=== PATIENT | male | born 1995 | race American Indian/Alaskan Native ===

== ENCOUNTER 2016-08-01 01:13 | Emergency (ER) | payer SELFPAY ==
[2016-08-01] MEDS ORDERED: NACL 0.9% 500 ML IR ONE (02:33)
[2016-08-01] MEDS ORDERED: NACL 0.9% IR ONE (02:35)
--- NOTE | 2016-08-01 02:58 | XRay Report ---
FINAL REPORT PROCEDURE: XR HAND 2V RT TECHNIQUE: RIGHT hand radiographs, AP and lateral views. CPT 66727-XU HISTORY: Right hand laceration with glass COMPARISON: No prior studies are available for comparison. FINDINGS: Fracture (s) and/or Dislocation(s): None . Alignment: Normal . Joint space(s): Normal . Soft tissues: Normal . Bone mineralization: Normal . Foreign bodies: None . IMPRESSION: Normal Examination .
[2016-08-01] MEDS ORDERED: NORCO 5/325 PO ONE (03:37)
[2016-08-01] MEDS ORDERED: BOOSTRIX IM ONE (03:38)
[2016-08-01] MEDS ORDERED: ZOFRAN ODT PO ONE (03:38)
[2016-08-01] MEDS ORDERED: TRIPLE ANTIBIOTIC TP ONE (03:38)
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
[2016-08-01] MEDS ORDERED: MOTRIN PO ONE (05:54)
[2016-08-01] MEDS ORDERED: CLEOCIN PO ONE (05:54)
[2016-08-01 06:27] VITALS: BP 129/89
== END 2016-08-01 06:27 | disposition home or self-care (01) ==
LOC: ED 01:13
DX: S61.411A Laceration without foreign body of right hand, initial encounter (principal); F17.210 Nicotine dependence, cigarettes, uncomplicated; F12.10 Cannabis abuse, uncomplicated; W45.8XXA Other foreign body or object entering through skin, initial encounter; Y93.89 Activity, other specified; Y92.89 Other specified places as the place of occurrence of the external cause; Y99.8 Other external cause status
CPT/HCPCS: 90471; 90715; 99284; A6250; Q0162

== ENCOUNTER 2016-08-03 06:15 | Emergency (ER) | payer SELFPAY ==
[2016-08-03 06:36] VITALS: BP 119/77
== END 2016-08-03 07:06 | disposition left against medical advice (07) ==
LOC: ED 06:15
DX: Z53.21 Procedure and treatment not carried out due to patient leaving prior to being seen by health care provider (principal)

== ENCOUNTER 2016-08-05 15:33 | Emergency (ER) | payer SELFPAY ==
[2016-08-05 16:27] VITALS: BP 123/70
--- NOTE | 2016-08-05 21:28 | Emergency Department Report ---
ED General Adult HPI - General Chief complaint: Recheck/Abnormal Lab/Rx Stated complaint: CHECK ON STITCHES/YEAST INFECTION Time Seen by Provider: 08/05/16 21:02 Source: patient Mode of arrival: Ambulatory Limitations: No Limitations - History of Present Illness Initial comments: pt presents for wound check or right hand laceration repair of 08/01/2016 denies drainage no increase in pain splint as directed , pt submits secondary complaint of penile irritation and redness x 3 days pt endorse itching dysuria no discharge no lesions no rash no open sores. Onset/Timin -: days(s) Location: upper extremity Radiation: non-radiation Severity scale (0 -10): 2 Quality: aching Consistency: intermittent Improves with: immobilization, rest Worsens with: movement Associated Symptoms: denies: fever/chills, headaches, nausea/vomiting, shortness of breath, weakness Treatments Prior to Arrival: NSAID - Related Data Previous Rx's Medication Instructions Recorded Last Taken Type Acetaminophen/Codeine [Tylenol 1 tab PO Q6H PRN #9 tab 08/01/16 Unknown Rx /Codeine # 3 tab] Clindamycin [Clindamycin CAP] 300 mg PO Q6H #28 capsule 08/01/16 Unknown Rx Ibuprofen [Motrin] 600 mg PO Q8H PRN #30 tablet 08/01/16 Unknown Rx Neomycn/Baci Zn/Pmyx Bs/Pramox 28 gm TP BID #1 oint...g. 08/01/16 Unknown Rx [Triple Antibioti-Pain Rlf Oint] Sodium Chloride Irri 500 ml [NaCl 500 ml IR ONCE #1 bottle 08/01/16 Unknown Rx 0.9%] Cephalexin [Keflex] 500 mg PO BID #14 capsule 08/05/16 Unknown Rx Allergies Allergy/AdvReac Type Severity Reaction Status Date / Time No Known Allergies Allergy Verified 08/05/16 16:27 ED Review of Systems ROS: Stated complaint: CHECK ON STITCHES/YEAST INFECTION Other details as noted in HPI Constitutional: denies: chills, fever Eyes: denies: eye pain, eye discharge, vision change ENT: denies: ear pain, throat pain Respiratory: denies: cough, shortness of breath, wheezing Cardiovascular: denies: chest pain, palpitations Endocrine: no symptoms reported Gastrointestinal: denies: abdominal pain, nausea, diarrhea Genitourinary: urgency, dysuria, frequency. denies: hematuria, discharge, testicular pain, testicular mass Musculoskeletal: other (laceration) Skin: denies: rash, lesions, change in color, change in hair/nails, pruritus Neurological: denies: headache, weakness, paresthesias Psychiatric: denies: anxiety, depression Hematological/Lymphatic: denies: easy bleeding, easy bruising ED Past Medical Hx - Past Medical History Previous Medical History?: No - Surgical History Additional Surgical History: Left EARDRUM surgery - Social History Smoking Status: Current Every Day Smoker Substance Use Type: Alcohol, Marijuana - Medications Home Medications: Home Medications Medication Instructions Recorded Confirmed Last Taken Type Acetaminophen/Codeine [Tylenol 1 tab PO Q6H PRN #9 tab 08/01/16 Unknown Rx /Codeine # 3 tab] Clindamycin [Clindamycin CAP] 300 mg PO Q6H #28 capsule 08/01/16 Unknown Rx Ibuprofen [Motrin] 600 mg PO Q8H PRN #30 tablet 08/01/16 Unknown Rx Neomycn/Baci Zn/Pmyx Bs/Pramox 28 gm TP BID #1 oint...g. 08/01/16 Unknown Rx [Triple Antibioti-Pain Rlf Oint] Sodium Chloride Irri 500 ml [NaCl 500 ml IR ONCE #1 bottle 08/01/16 Unknown Rx 0.9%] Cephalexin [Keflex] 500 mg PO BID #14 capsule 08/05/16 Unknown Rx ED Physical Exam - General Limitations: No Limitations General appearance: alert, in no apparent distress - Head Head exam: Present: atraumatic, normocephalic - Eye Eye exam: Present: normal appearance - ENT ENT exam: Present: mucous membranes moist - Neck Neck exam: Present: normal inspection - Respiratory Respiratory exam: Present: normal lung sounds bilaterally. Absent: respiratory distress - Cardiovascular Cardiovascular Exam: Present: regular rate, normal rhythm. Absent: systolic murmur, diastolic murmur, rubs, gallop - GI/Abdominal GI/Abdominal exam: Present: soft, normal bowel sounds - Rectal Rectal exam: Present: deferred - exam: Present: circumcision. Absent: testicular tenderness, urethral discharge, scrotal swelling, vertical testicular lie, other (mild shaft erythema chafing consistent with fuentes no penile discharge noted no scrotal tenderness or swelling ) - Expanded Upper Extremity Exam Right Hand Wrist exam: Present: tenderness (right hand laceration repair no discharge no erythema edges healing rom restricted by pain no symptsom of infection), swelling, laceration, other. Absent: ecchymosis, deformity, crepidus, dislocation, erythema, amputation, nail avulsion ED Course Vital Signs 08/05/16 16:22 Temperature 98.6 F Pulse Rate 92 H Respiratory 17 Rate Blood Pressure 123/70 O2 Sat by Pulse 100 Oximetry ED Medical Decision Making - Lab Data Laboratory Tests 08/05/16 21:27 Urine Color Straw Urine Turbidity Clear Urine pH 7.0 Ur Specific [place] 1.006 Urine Protein <15 mg/dl Urine Glucose (UA) Neg Urine Ketones Neg Urine Blood Neg Urine Nitrite Neg Urine Bilirubin Neg Urine Urobilinogen < 2.0 Ur Leukocyte Esterase Neg Urine WBC (Auto) 2.0 Urine RBC (Auto) 4.0 U Epithel Cells (Auto) < 1.0 - Medical Decision Making pt is a 21 y/o aaf who presents for wound check right hand laceration repair or 08/01/2016 wound inspection no erythema no discharge no symptoms of infection edges approximated suturres intact, reenforce wound and splint care instructions pt to follow up orthopedics as directed, and return to ecc for suture removal in 5-7 days, secondary complaint , penile rash, erythema , itching and dysuria x 3 days advises girlfriend has yeast infection , ua: wbc, rbc, will treat for uti pt will follow up with primary care as directed pt verbalized agreement and understanding with discharge plan. Critical care attestation.: If time is entered above; I have spent that time in minutes in the direct care of this critically ill patient, excluding procedure time. ED Disposition Clinical Impression: UTI (urinary tract infection) Qualifiers: Urinary tract infection type: acute cystitis Hematuria presence: without hematuria Qualified Code(s): N30.00 - Acute cystitis without hematuria Disposition: TO HOME OR SELFCARE Is pt being admited?: No Does the pt Need Aspirin: No Condition: Good Instructions: Urinary Tract Infection in Women (ED) Prescriptions: Cephalexin [Keflex] 500 mg PO BID #14 capsule Referrals: PRIMARY CARE, [Primary Care Provider] - 3-5 Days Forms: Work/School Release Form(ED) Time of Disposition: 22:57
[2016-08-05 22:03] LABS: Bilirubin,Urine NEG (Negative); Blood,Urine NEG (Negative); Ketones,Urine NEG (Negative); Leukocyte Esterase,Urine NEG (Negative); Nitrite,Urine NEG (Negative); Protein,Urine <15 mg/dL mg/dL (Negative); Urobilinogen,Urine < 2.0 mg/dL (<2.0)
[2016-08-05] MEDS ORDERED: DIFLUCAN PO ONE (22:54)
[2016-08-05] MEDS ORDERED: KEFLEX PO ONE (22:54)
== END 2016-08-05 23:27 | disposition home or self-care (01) ==
LOC: ED 15:33
DX: N30.00 Acute cystitis without hematuria (principal); F17.200 Nicotine dependence, unspecified, uncomplicated; F12.10 Cannabis abuse, uncomplicated
CPT/HCPCS: 81001; 99283

== ENCOUNTER 2016-08-25 14:29 | Emergency (ER) | payer SELFPAY ==
--- NOTE | 2016-08-25 19:40 | XRay Report ---
FINAL REPORT EXAM: XR HAND 3 RT HISTORY: RIGHT HAND, 3RD DIGIT, 2nd knuckle pain TECHNIQUE: 3 views right hand PRIORS: None. FINDINGS: No fracture is identified. No dislocation seen. Joint spaces are within normal limits. No erosive bony change identified. Carpal bones maintain normal alignment. Distal radius and ulna are intact. No radiopaque foreign bodies seen. IMPRESSION: Negative hand series
--- NOTE | 2016-08-25 20:32 | Emergency Department Report ---
Upper Extremity - HPI Chief Complaint: Extremity Injury, Upper Stated Complaint: RT HAND LACERATION POSS INFECTION Time Seen by Provider: 08/25/16 20:05 Upper Extremity: Right Hand Occurred When: Today Severity: mild Symptoms: No Pain with Movement, No Deformity, No Limited Range of Movement, No Numbness, No Weakness, No Swelling, No Bruising/Ecchymosis, No Laceration or Abrasion Other History: 21-year-old male medical history presents with complaint of scar tissue to the right third MCP skin area. Patient was seen in the ED 3 weeks ago for a large knuckle laceration. Patient states that most of laceration is healed but area at or overlying MCP joint on dorsal aspect of base of middle finger has had open skin since the initial injury occurred. Patient denies fevers or chills. Patient visibly ranging all his fingers without difficulty. Denies any significant purulent drainage from wound site. States that there has been significant improvement but edges of the wound have not entirely healed. Patient states that he removed his sutures at home. Did not seek medical attention for suture removal. ED Review of Systems ROS: Stated complaint: RT HAND LACERATION POSS INFECTION Other details as noted in HPI Constitutional: denies: chills, fever Eyes: denies: eye pain, eye discharge, vision change ENT: denies: ear pain, throat pain Respiratory: denies: cough, shortness of breath, wheezing Cardiovascular: denies: chest pain, palpitations Endocrine: no symptoms reported Gastrointestinal: denies: abdominal pain, nausea, diarrhea Genitourinary: denies: urgency, dysuria Musculoskeletal: as per HPI. denies: back pain, joint swelling, arthralgia Skin: as per HPI. denies: rash, lesions Neurological: denies: headache, weakness, paresthesias Psychiatric: denies: anxiety, depression Hematological/Lymphatic: denies: easy bleeding, easy bruising ED Past Medical Hx - Past Medical History Previous Medical History?: Yes Additional medical history: right hand lac - Surgical History Past Surgical History?: Yes Additional Surgical History: Left EARDRUM surgery - Social History Smoking Status: Current Every Day Smoker Substance Use Type: Alcohol, Marijuana, Prescribed - Medications Home Medications: Home Medications Medication Instructions Recorded Confirmed Last Taken Type Acetaminophen/Codeine [Tylenol 1 tab PO Q6H PRN #9 tab 08/01/16 Unknown Rx /Codeine # 3 tab] Clindamycin [Clindamycin CAP] 300 mg PO Q6H #28 capsule 08/01/16 Unknown Rx Ibuprofen [Motrin] 600 mg PO Q8H PRN #30 tablet 08/01/16 Unknown Rx Neomycn/Baci Zn/Pmyx Bs/Pramox 28 gm TP BID #1 oint...g. 08/01/16 Unknown Rx [Triple Antibioti-Pain Rlf Oint] Sodium Chloride Irri 500 ml [NaCl 500 ml IR ONCE #1 bottle 08/01/16 Unknown Rx 0.9%] Cephalexin [Keflex] 500 mg PO BID #14 capsule 08/05/16 Unknown Rx traMADol [Ultram 50 MG tab] 50 mg PO Q6HR PRN #15 tablet 08/05/16 Unknown Rx Sulfamethoxazole/Trimethoprim 1 each PO BID #14 tablet 08/25/16 Unknown Rx [Bactrim DS TAB] Upper Extremity Exam - Exam General: Vital signs noted. No distress. Alert and acting appropriately. Head and Torso: No HEENT Abnormality, No Neck Tenderness, No Chest/Lungs Abnormality, No Abdominal Tenderness, No Back Tenderness Shoulder Exam: Yes Normal Range of Motion in Shoulder, No Shoulder Tenderness, No Clavicle Tenderness, No Shoulder Deformity, No AC Joint Tenderness Arm Exam: No Arm/Humerus Tenderness, No Arm Deformity Elbow: No Elbow Tenderness, No Normal Range of Motion in Elbow, No Elbow Deformity Forearm: No Forearm Tenderness, No Forearm Deformity, No Pain with Pronation, No Pain with Supination Wrist: Yes Normal ROM in Wrist, No Wrist Tenderness, No Wrist Deformity, No Snuffbox Tenderness, No Pain with Axial Thumb Compression Hand: Yes Hand Deformity (skin deformity overlying MCP joint dorsal aspect right hand at base of middle finger. 1-2 cm open wound site with granulating tissue exposed), Yes Normal ROM in Digit(s), No Hand Tenderness, No Digit Tenderness, No Digit(s) Deformity, No Tendon Dysfunction CMS Exam: Yes Normal Distal Pulses (distal capillary refill less than one second all fingers, distal radial pulses intact), Yes Normal Capillary Refill, Yes Normal Distal Sensation, No Broken Skin Hand L/R Back: 1 - Wound site here. Visible scar tissue and granulating tissue exposed approximately 1-2 cm on fully across MCP joint. No significant purulent drainage no surrounding erythema, finger range of motion is intact at MCP joint. No foul odor ED Course Vital Signs 08/25/16 14:34 Temperature 98.3 F Pulse Rate 81 Respiratory 20 Rate Blood Pressure 130/86 O2 Sat by Pulse 100 Oximetry ED Medical Decision Making - Medical Decision Making A/P: Wound dehiscence, granulating scar tissue right third knuckle 1-there appeared to be no overt signs of infection, small amount of serous drainage from edge of the wound. Range of motion finger distal sensation distal blood flow intact exam 2-I discussed case with Dr. Phillips 3-will give patient a course of Bactrim as he says clindamycin caused him to have an allergic reaction. Patient did not complete his initial antibiotic course as per history he provided 4- area cleaned with saline, necrotic tissue falling off of wound edges. Area covered with Xeroform than light gauze wrap on top. I advised the patient to clean his wound gently with soap and water at least once a day and to apply Xeroform at least once a day until wound until it heals. I provided patient with initial gauze wraps and a packet of Xeroform for this. I advised him to return to the ED for any difficulty range his finger, fevers or chills, significant purulent drainage, surrounding cellulitis or erythema developing an area which she does not currently have. Today's x-ray is unremarkable. Critical care attestation.: If time is entered above; I have spent that time in minutes in the direct care of this critically ill patient, excluding procedure time. ED Disposition Clinical Impression: Wound of skin Disposition: DC-01 TO HOME OR SELFCARE Is pt being admited?: No Does the pt Need Aspirin: No Condition: Stable Instructions: Acute Wound Care (ED), Wound Healing and Your Diet (ED) Prescriptions: Sulfamethoxazole/Trimethoprim [Bactrim DS TAB] 1 each PO BID #14 tablet Referrals: [facility] [Provider Group] - 3-5 Days SORAYA LEBRON MD [Staff Physician] - 3-5 Days Forms: Accompanied Note, Work/School Release Form(ED)
[2016-08-25 21:07] VITALS: BP 141/95
== END 2016-08-25 21:07 | disposition home or self-care (01) ==
LOC: ED 14:29
DX: T81.33XA Disruption of traumatic injury wound repair, initial encounter (principal); Y92.9 Unspecified place or not applicable; F17.200 Nicotine dependence, unspecified, uncomplicated
CPT/HCPCS: 99283

== ENCOUNTER 2020-11-24 17:43 | Emergency (ER) | payer OTHER ==
[2020-11-24 18:24] VITALS: BP 1115/78
--- NOTE | 2020-11-24 18:29 | Emergency Department Report ---
ED Dysuria HPI - HPI Chief Complaint: Urogenital-Male Stated Complaint: ABCESS UNDER PENIS Time Seen by Provider: 11/24/20 18:25 Location of Discomfort: Other Severity: Mild Symptoms: Dysuria: No, Frequency: No, Suprapubic Pain: No, Flank Pain: No, Fever: No, Hematuria: No, Abdominal Pain: No, Previous UTI's: No Other History: 25 YO AA COMES TO ER WITH "BUMPS" ON HIS PENIS. ENDORSES DISCHARGE THIS AM. NEW FEMALE SEXUAL PARTNER. DENIES HX STI. NO FEVER OR CHILLS. NO BACK OR ABD PAIN. NO TESTICULAR PAIN ED Review of Systems ROS: Stated complaint: ABCESS UNDER PENIS Other details as noted in HPI Comment: All other systems reviewed and negative ED Past Medical Hx - Past Medical History Previous Medical History?: No Additional medical history: right hand lac - Surgical History Past Surgical History?: No Additional Surgical History: Left EARDRUM surgery - Family History Family history: no significant - Social History Smoking Status: Current Every Day Smoker Substance Use Type: Marijuana - Medications Home Medications: Home Medications Medication Instructions Recorded Confirmed Last Taken Type Azithromycin [Zithromax Z-RUT] 500 mg PO ONCE #2 tablet 11/24/20 Unknown Rx metroNIDAZOLE [Flagyl] 500 mg PO ONCE #4 tab 11/24/20 Unknown Rx Dysuria Exam - Exam General: Vital signs noted. No distress. Alert and acting appropriately. small round lesions consistent with genital warts on shaft of penis no testicular lesions/ no pain on palpation Exam: Yes Moist Mucous Membranes, No CVA Tenderness, No Abdominal Tenderness, No Rigidity or Guarding ED Course Vital Signs 11/24/20 18:23 Temperature 98.8 F Pulse Rate 58 L Respiratory 16 Rate Blood Pressure 1115/78 [Right] O2 Sat by Pulse 99 Oximetry - Reevaluation(s) Reevaluation #1: 11/24/20 PT TOLD HIS MOTHER HE HAD A SPIDER BITE AND MAY NEED SURGERY. SHE CALLED ER WANTING INFO- BECAUSE PT IS 25 SHE WAS NOT GIVEN INFO AND WAS IRATE ED Medical Decision Making - Medical Decision Making Vital Signs 11/24/20 18:23 Temperature 98.8 F Pulse Rate 58 L Respiratory 16 Rate Blood Pressure 1115/78 [Right] O2 Sat by Pulse 99 Oximetry new female sexual partner now has lesions consistent with genital warts on shaft of penis reports recent discharge no testicular pain no abd pain no back pain no fever or chills empiric treatment for STD and referral to uro for genital warts pt educated on warts and management PT DC HOME WITH FOLLOW UP WITH PCP/URO FOR FURTHER MANAGEMENT. HE VERBALIZES UNDERSTANDING OF DC PLAN OF CARE - Differential Diagnosis STD Critical care attestation.: If time is entered above; I have spent that time in minutes in the direct care of this critically ill patient, excluding procedure time. ED Disposition Clinical Impression: STD (male), Genital warts Disposition: HOME / SELF CARE / HOMELESS Is pt being admited?: No Does the pt Need Aspirin: No Condition: Stable Instructions: Genital Warts, Human Papillomavirus, [id number], Genital Warts, [id number] Additional Instructions: meds as ordered today get them today and take all at once safe sex follow up with uro or pcp for treatment of warts referrals below read attached info on warts Prescriptions: metroNIDAZOLE [Flagyl] 500 mg PO ONCE #4 tab Azithromycin [Zithromax Z-RUT] 500 mg PO ONCE #2 tablet Referrals: MIRI BLANCAS MD [Staff Physician] - 3-5 Days SALINA BIRMINGHAM MD [Staff Physician] - 3-5 Days Time of Disposition: 18:43
[2020-11-24] MEDS ORDERED: LIDOCAINE-MPF (1%) 10 MG/1 ML VIAL 5 ML INFILTRATI ONE (18:59)
== END 2020-11-24 19:00 | disposition home or self-care (01) ==
LOC: ED 17:43
DX: B07.9 Viral wart, unspecified (principal); R30.0 Dysuria; F17.200 Nicotine dependence, unspecified, uncomplicated; F12.90 Cannabis use, unspecified, uncomplicated
CPT/HCPCS: 96372; 99281; J0696